=== PATIENT | female | born 1990 | race African-American/Black ===

== ENCOUNTER 2018-10-13 18:18 | Emergency (ER) | payer SELFPAY ==
[~2018-10-13] VITALS: Ht 170.2 cm; Wt 77.1 kg
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
[2018-10-13 19:42] VITALS: BP 123/83
[2018-10-13] MEDS ORDERED: Bacitracin Oint UD TOPIC ONE ×2 (19:57→20:00)
[2018-10-13] MEDS ORDERED: Tetanus/Diptheria/Pertussis Vaccine 0.5ml Syr IM ONE (20:00)
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
[2018-10-13] MEDS ORDERED: TYLENOL EXTRA500 MG ORAL (21:06)
[2018-10-13] MEDS ORDERED: BACITRACIN-P28.35 GM TP (21:06)
[2018-10-13 21:11] VITALS: BP 120/82
[2018-10-13 21:12] VITALS: BP 123/83
--- NOTE | 2018-10-13 21:13 | NUR ---
ED Nurse Note: PT is medically cleared per ERMD order. pt is stable for transfer. pt status condition and vital signs are reported to ERMD prior to DC. pt vital signs are stable. pt is alert and oriented times 4. pt left with all belongings, including DC ntoes and prescriptions. pt was able to teach back and understands DC notes and prescription. pt is instructed to follow up with primary MD as soon as possible, pt is instructed to return to ER if any variance in condition. ID band removed. pt is able to ambulate. pt is alert and oriented times 4. pt is stable for DC as per ERMD orders.
--- NOTE | 2018-10-14 11:04 | Diagnostic Imaging Report ---
Indication: Reason For Exam: PAIN Technique: 3 views of the left shoulder Comparison: None Findings: No acute fractures or dislocations. Joint spaces are preserved. Impression: Negative
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
== END 2018-10-13 21:14 ==
LOC: EMR 19:55
DX: S02.2XXA Fracture of nasal bones, initial encounter for closed fracture (principal); S40.211A Abrasion of right shoulder, initial encounter; S20.419A Abrasion of unspecified back wall of thorax, initial encounter; Y04.0XXA Assault by unarmed brawl or fight, initial encounter; Y92.89 Other specified places as the place of occurrence of the external cause
CPT/HCPCS: 70160; 90471; 90715; 99284